=== PATIENT | female | born 1995 ===

== ENCOUNTER → 2021-06-09 10:44 | Outpatient (CLI) | payer OTHER, SELFPAY ==
[2021-06-09 11:17] LABS: COVID19 -Nasal RAPID Negative (Negative)
== END ==
PROVIDERS: Visit Provider Physician Assistant
DX: Z20.822 Contact with and (suspected) exposure to COVID-19 (principal)
CPT/HCPCS: 87635

== ENCOUNTER 2025-02-28 07:25 | Inpatient (IN) | payer BC, SELFPAY ==
--- NOTE | 2025-02-28 07:53 | P.HPOB_ITS ---
OB HPI Date/Time Date of admission: 02/28/25 Date Patient Seen: 02/28/25 Time Patient Seen: 07:30 History of Present Condition Chief complaint: INDUCTION : 1 Para: 0 Estimated Date of Delivery: 02/21/25 Estimated Gestational Age (weeks): 41.0 Narrative: Rosa Eric is a 29 year old female @ 41wks 0 days by LMP concordant with 13wks US who presents for medical IOL for late term. Had a Jones balloon placed in clinic yesterday which resulted in 4 hours of strong contractions. Everything stopped around 9pm and she was able to get some sleep. Some mucus and bloody show was noted. Has been tugging on the balloon, but it hasn't come out yet. +FM. No LOF. Uncomplicated care with CNMs. Planning unmedicated . , Mike, is present and supportive. Indications Indication for induction OB: post dates (41.0) History of Present care: good care, initiated at week # (13), number of visits (10) and pounds weight gain (12) Dating criteria: LMP confirmed by 1st trimester US Ultrasounds: normal mid trimester US Obstetrical complications: none Preadmission Labs Blood type: A (+) positive -: Antibody screen: negative, GBS status: negative, HBsAG: negative, HIV: negative and RPR/VDLR: negative -: Chlamydia screen: not detected and Gonorrhea screen: not detected -: Rubella: not immune and Varicella: immune HCT: 38.3 HCAB: negative Cell-free DNA: Negative x3 1 hr GTT: 137 Evaluation Evaluation Baseline heart rate: 125 Variability: Moderate (6-25) monitor accelerations: Present Monitor Decelerations: Absent Dilation (cm): 4 Effacement (%): 75 Dilation: 3-4 cm Effacement: 60-70% station: -3 Position of cervix: posterior Consistency: soft Benitez score: 6 Comments: Jones balloon removed from vagina prior to CE [facility] Social History (Updated 02/28/25 @ 08:05 by Zoraida Da Silva CNM) marital status: details: has a stepson household members: spouse and children lives independently: Yes caregiver/support person: No housing: house education level: high school occupational status: employed do you feel safe at home: Yes Meds Home Medications and Allergies Home Medications ?Medication ?Instructions ?Recorded ?Confirmed ?Type benzonatate 100 mg capsule 100 mg PO BID-TID PRN cough #14 06/09/21 06/09/21 Rx caps Allergies Allergy/AdvReac Type Severity Reaction Status Date / Time diphenhydramine (From Allergy Severe Hives Verified 06/09/21 10:42 Benadryl) Review of Systems Review of Systems ROS: Yes All systems reviewed with the patient and are negative except as otherwise documented OB Exam Vital signs Blood Pressure: 114/73 Pulse Rate: 105 Temperature: 95.5 F (temporal) Resp Effort & Inspection: normal respiratory effort and able to speak in complete sentences Auscultation: clear to auscultation bilaterally Cardio Rate: regular rate Rhythm: regular rhythm Heart Sounds: S1 normal and S2 normal Presentation: vertex Estimated Weight (lbs): 7 Objective Labs 02/28/25 08:20 Assessment and Plan Assessment and Plan Assessment and Plan narrative: A: Late term [place] Medical IOL- post dates Cervical ripening indicated No indication for antibiotics Cat I FHR P: Admit routine labor order. Start with misoprostol x2 doses, then reassess. Encouraged balanced rest and activity in the early stages. Time-Based Coding :: [TOTAL MINUTES] spent with patient and on the chart (including review of chart, obtaining history, exam, reviewing outside data, placing orders, documenting exam and treatment plan, and counseling patient) on [DATE].
[2025-02-28 08:06] VITALS: BP 114/73; PULSE 105; TEMP 35.3
[2025-02-28 09:07] LABS: Add Manual Diff / Slide Review NO; Hematocrit 41.7 % (36-46); Hemoglobin 14.2 g/dL (12.0-16.0); Lymphocytes Absolute Auto 1300 /uL (1100-4500); Mean Corpuscular HGB Conc 33.9 % (30-36); Mean Corpuscular Hemoglobin 30.4 PG (26-34); Mean Corpuscular Volume 89.5 fL (80-100); Platelet Count 268 X10^3/uL (150-400)
[2025-02-28 10:21] VITALS: BP 114/72
[2025-02-28] MEDS: LACTATED RINGERS 1,000 ML 100 ML IV (15:40)
[2025-02-28] MEDS: OXYTOCIN PREMIX 30 UNIT/500 ML PLAST..BAG IV (15:41)
--- NOTE | 2025-02-28 15:45 | PM.OBPNLAB ---
Date/Time Date Patient Seen: 02/28/25 Time Patient Seen: 15:30 Pain Control Pain control: tolerating well Comments: Sitting up on a ball, visiting with her mother, sister and . [place] mild contractions with first dose of misoprostol and was able to alternate rest and activity. Contractions became stronger with second dose of misoprostol, given around noon. Maris rating contractions at 7/10. No vaginal bleeding or leaking of fluid. Open to pitocin at this time. VS: BP 120/81, HR 102, T 35.4C Temporal Pelvic Exam Dilation (cm): 5 Effacement (%): 75 station: -2 Amniotic membrane status: Intact Contractions Monitor mode: External Contraction frequency (min): 3 (2-4) Contraction duration (min): 1 Contraction pattern: Regular Contraction intensity: Moderate Status status: Category l Heart Rate Baseline: 135 Monitor Accelerations: Present Monitor Decelerations: Absent Monitor Variability: Moderate Assessment and Plan Assessment: induction ongoing Plan: begin patient augmentation (begin pitocin slowly) Comments: Offered watching and waiting to see if stronger contraction persist vs beginning pitocin augmentation now. Rosa elected to start pitocin which was ordered. Encouraged hydrotherapy as next step if not coping well. Reassess in 4 hours or JOHN patterson.
[2025-02-28] MEDS: ONDANSETRON 4 MG/2 ML INJ IV (18:44)
[2025-02-28] MEDS: fentaNYL 100 MCG/2 ML INJ IV (18:56)
--- NOTE | 2025-02-28 20:25 | P.PCN_ITS ---
Regional Block Pre-procedure Procedure: Continuous Lumbar Epidural for L&D Attending OB provider: Zoraida Da Silva PMH/ROS narrative: at 41+ IOL. No medical or obstetric complications. No significant PMH. Reports anaphylaxis to diphenhydramine. ASA Class: II Labs: Hct 41.7 % (36-46) 02/28/25 08:20 Plt Count 268 X10^3/uL (150-400) 02/28/25 08:20 Medications: Current Medications Generic Name Dose Route Start Last Admin Trade Name Freq PRN Reason Stop Dose Admin Calcium Carbonate 1,000 mg 02/28/25 07:49 Calcium Carbonate 500 Mg Tab PO Q2HR PRN Dyspepsia Carboprost Tromethamine 250 mcg 02/28/25 07:49 Carboprost 250 Mcg/Ml Ampul IM Q90M PRN Bleeding Fentanyl 100 mcg 02/28/25 07:49 02/28/25 18:56 Fentanyl 100 Mcg/2 Ml Inj IV 100 mcg Q1H PRN Administration Pain, Severe (7-10) Oxytocin/Lactated Ringer's 30 unit in 500 mls @ 200 mls/hr 02/28/25 07:49 Oxytocin Premix IV CONT PRN Bleeding Protocol Tranexamic Acid 1,000 mg/ 100 mls @ 600 mls/hr 02/28/25 07:49 Sodium Chloride IV NOW PRN Bleeding Oxytocin/Lactated Ringer's 30 unit in 500 mls @ 2 mls/hr 02/28/25 08:00 02/28/25 15:41 Oxytocin Premix IV 2 milliunit/min TITRATE ALONZO 2 mls/hr Protocol Administration 2 MILLIUNIT/MIN Lidocaine HCl 20 ml 02/28/25 07:49 Lidocaine 1% 20 Ml INJ INTRA-OP PRN Post Delivery Methylergonovine Maleate 0.2 mg 02/28/25 07:49 Methylergonovine 0.2 Mg Tablet PO Q6HR PRN Heavy Bleeding Methylergonovine Maleate 0.2 mg 02/28/25 07:49 Methylergonovine 0.2 Mg/Ml Vial IM NOW PRN Bleeding Mineral Oil 30 ml 02/28/25 07:49 Mineral Oil 30 Ml Udc TOP PRN PRN Version Misoprostol 800 mcg 02/28/25 07:49 Misoprostol 200 Mcg Tablet MS NOW PRN Bleeding Misoprostol 400 mcg 02/28/25 07:49 Misoprostol 200 Mcg Tablet SL NOW PRN Bleeding Misoprostol 50 mcg 02/28/25 07:49 02/28/25 12:08 Misoprostol 25 Mcg Tablet SL 50 mcg Q4H PRN Administration cervical ripening Naloxone HCl 0.2 mg 02/28/25 07:49 Naloxone 0.4 Mg/Ml Vial IV Q2MIN PRN Opiate Reversal Ondansetron HCl 4 mg 02/28/25 07:49 02/28/25 18:44 Ondansetron 4 Mg/2 Ml Inj IV 4 mg Q4HR PRN Administration Nausea And Vomiting Oxytocin 10 unit 02/28/25 07:49 Oxytocin 10 Unit/Ml Vial IM NOW PRN Bleeding Allergies: Allergies Allergy/AdvReac Type Severity Reaction Status Date / Time diphenhydramine (From Allergy Severe Hives Verified 06/09/21 10:42 Benadryl) Procedure Insertion date: 02/28/25 Insertion time: 20:04 Prep/Local: betadine x3 and 1% lidocaine Interspace: L23 Patient position: sitting Needle: 18 gauge [facility] (CSE: 27g Pencan through Hustead, clear CSF, 1mL 0.25% bupiv MPF) Loss of resistance with: saline JUANITA at (cm): 5 Catheter placed at SKIN (cm): 10 Catheter in SPACE (cm): 5 Insertion: No CSF, No Blood and No Paresthesia with insertion Initial Medications TEST DOSE time: 20:06 TEST DOSE: 1.5% lidocaine with epinephrine 1:200k (mL): 3 BOLUS DOSE time: 20:14 BOLUS DOSE (mL): 4 BOLUS DOSE med: other (infusate) Infusion INFUSION: 0.125% bupivacaine and with fentanyl 2 mcg/mL Initial rate (mL/hr): 8 Subsequent interventions: To CS for failure to progress/active phase arrest. Post-procedure Anesthesia date START: 02/28/25 Anesthesia time START: 19:54 Anesthesia date END: 03/01/25 Anesthesia time END: 12:09 Post-procedure Anesthesia Assessment: Yes CV function: HR/BP stable, Yes Resp function: RR/sat/airway adequate, Yes Post-op hydration adequate, Yes Pain control adequate, Yes Nausea & vomiting absent, Yes Temperature > 36 C, Yes Mental status appropriate and No Anesthesia complications
--- NOTE | 2025-02-28 20:54 | PM.OBPNLAB ---
Date/Time Date Patient Seen: 02/28/25 Time Patient Seen: 20:30 Pain Control Pain control: epidural Comments: Labored well with low dose pitocin augmentation (max dose 6mu/min). Tried NO2 for a few hours before requesting a dose of Fentanyl, then an epidural. Now resting comfortably after epidural placement. VS: BP 120/61, HR 87bpm, T 36.4C Temporal Pelvic Exam Dilation (cm): 6 Effacement (%): 90 station: -2 Amniotic membrane status: Bulging Contractions Monitor mode: External Pitocin rate (mU/min): 6 Contraction frequency (min): 2 Contraction duration (min): 1 Contraction pattern: Regular Contraction intensity: Moderate Status status: Category ll Heart Rate Baseline: 140 Monitor Accelerations: Present Monitor Decelerations: Early and Late Monitor Variability: Moderate Assessment and Plan Assessment: active labor and induction ongoing Plan: continuous present management Comments: Decrease pitocin now and allow for resolution of late deceleration. If FHR improves, will continue pitocin titration. Encourage rest with frequent position changes. Reassess in 4 hours or GADIEL pattersonN.
--- NOTE | 2025-03-01 | PATH_ITS ---
[facility] Accession Number: [id number] No. of containers..01 Tissue . 01 Material submitted: . placenta - PLACENTA . 01 Diagnosis: PLACENTA: Intact tafoya placenta with features of maturation consistent with third trimester gestational age. Placental weight: 469 g (greater than 25th percentile for gestational age of 41 weeks). Para centrally inserted 3 vessel umbilical cord with amniotic web; No evidence of funisitis, true knots or thrombi. membranes with meconium staining macrophages and mild acute chorioamnionitis. Placenta cotyledon parenchyma with no significant diagnostic alterations. No evidence of acute villitis, infarcts or features of abruption. [facility] 03/17/2025 1535 Local . 01 Electronically signed: . Letty Middleton MD, Pathologist NPI- [id number] . 01 Gross description: . The specimen is received in formalin with two patient identifiers and placenta and consists of a 19.5 x 19.0 x 1.9 cm discoid-shaped tafoya placenta with a 469 gram trimmed weight. The membranes are slightly green tinged, focally thickened, and insert marginally. There is a 46 cm in length and up to 1.8 cm in diameter trivascular paracentrally inserted umbilical cord. The umbilical cord inserts 4.5 cm from the nearest placental edge. There is an amniotic web that extends up to 1.5 cm up the umbilical cord and as a result, the amnion is partially from the chorionic surface. The umbilical cord is wagner-white, slightly green tinged, and has 1.5 twists per 5 cm. In addition, there is a 3 cm in length and up to 2.5 cm in diameter segment of the umbilical cord which is markedly edematous but is otherwise unremarkable. The surface is wagner-green with vessels that radiate from the umbilical cord. The maternal surface is made up of complete and well-formed cotyledons, and sectioning through the placental disc shows a red-wagner, focally calcified, spongy, homogeneous cut surface without areas of abnormality. Construction Worker sections are submitted as follows: . A1: Proximal and distal cord. A2: Membrane rolls. A3: Focally edematous umbilical cord. A4: Full-thickness placental disc to include focal area of calcification. A5-A6: Additional full-thickness sections of placenta. ([id number]) /MRV 03/04/2025 Count includes the [facility] Local . 01 Pathologist provided ICD-10: P96.83, O62.9 . 01 CPT . 995494 Specimen Comment: A courtesy copy of this report has been sent to [facility] Pathology Performed at: [address] [id number] MD Santhosh Sadler MD Phone: [phone]
--- NOTE | 2025-03-01 00:55 | PM.OBPNLAB ---
Date/Time Date Patient Seen: 03/01/25 Time Patient Seen: 00:40 Pain Control Comments: Rosa has been changing positions and resting well with adequate epidural anesthesia. Family remains supportive at her side. Agreeable to AROM. VS: BP 137/75, HR 100bpm, T 36.0C Temporal Pelvic Exam Dilation (cm): 7 Effacement (%): 90 station: -2 Amniotic membrane status: Ruptured (AROM, meconium) Contractions Monitor mode: External Pitocin rate (mU/min): 3 Contraction frequency (min): 2 Contraction pattern: Regular Contraction intensity: Moderate Status status: Category ll Heart Rate Baseline: 130 Monitor Accelerations: Present Monitor Decelerations: Early and Late Monitor Variability: Moderate Assessment and Plan Assessment: active labor (w/ slow progression) and induction ongoing Plan: continuous present management Comments: AROM performed after informed consent obtained. Encouraged upright positioning for the next 20-30 minutes, as allowed by FHR. Continue pitocin titration to adequate contraction pattern. CNM remains in house for cat II FHR. Will consult OB as appropriate, though FHR remains reassuring to continue labor at this time.
[2025-03-01] MEDS: FENT 2MCG/ML BUPIV 0.125% EPI 200 MCG/100 ML PLAST..BAG 8 MCG EPIDURAL ×2 (01:21→10:25)
--- NOTE | 2025-03-01 05:19 | PM.OBPNLAB ---
Date/Time Date Patient Seen: 03/01/25 Time Patient Seen: 05:00 Pain Control Comments: Rosa remains comfortable with her epidural and maintaining good movement, has even been able to be on hands and knees with a CUB. VS: Pelvic Exam Dilation (cm): 7 Effacement (%): 90 station: -2 Amniotic membrane status: Leaking (copious thin meconium) Comments: Caput deflexed, LOT Contractions Monitor mode: External Pitocin rate (mU/min): 3 Contraction frequency (min): 4 Contraction pattern: Regular Contraction intensity: Moderate Status status: Category ll Heart Rate Baseline: 140 Monitor Accelerations: Present Monitor Decelerations: Early, Late (rare) and Variable Monitor Variability: Moderate Assessment and Plan Assessment: active labor and induction ongoing Comments: Discussed slow labor progression with malpresented fetus and introduced possibility of need for . Recommend IUPC which Rosa consented to. IUPC placed, initial MVUs are 80. Will continue pitocin titration to adequate contraction. Will consider manual rotation of fetus. Reassess in 4 hours or repeat CE after 2 hours of adequate contractions.
[2025-03-01] MEDS: LACTATED RINGERS 1,000 ML 100 ML IV (10:26)
[2025-03-01] MEDS: ONDANSETRON 4 MG/2 ML INJ IV ×2 (10:26→17:12)
[2025-03-01] MEDS: LACTATED RINGERS 1,000 ML 999 ML IV (10:37)
--- NOTE | 2025-03-01 11:08 | PM.OBPNLAB ---
Date/Time Date Patient Seen: 03/01/25 Time Patient Seen: 11:08 Pain Control Pain control: epidural Comments: Rosa has tried everything, including CNM attempting a manual rotation, RNs performing Welcher's and an amnioinfusion. Pitocin reached a max dose of 13mu/min. Rosa is feeling ready for a if no change at this exam. VS: BP 124/79, HR 127bpm, T 36.8C Temporal, SpO2 100% on RA. Pelvic Exam Dilation (cm): 7 Effacement (%): 90 station: -2 Amniotic membrane status: Leaking (copious thin meconium) Contractions Monitor mode: External Pitocin rate (mU/min): 13 Contraction frequency (min): 3 Contraction duration (min): 2 Contraction pattern: Regular Contraction intensity: Moderate Intrauterine tone measurement: 160 (max MVUs reached ) Status status: Category ll Heart Rate Baseline: 155 Monitor Accelerations: Present Monitor Decelerations: Early, Late and Variable Monitor Variability: Moderate Assessment and Plan Plan: Comments: Given no cervical change for 10 hours with persistent malpresentation proceeding with a is indicated and Rosa is requesting this. Stop the pitocin, IUPC out. Consulted [facility]/ and for primary for active phase arrest. Notified [facility]/ for Cat II FHR and meconium stained amniotic fluid.
[2025-03-01] MEDS: CITRIC ACID/SODIUM CITRATE 15 ML SOLUTION 30 ML PO (11:47)
--- NOTE | 2025-03-01 12:15 | P.OP.PRE_ITS ---
Pre-operative Note COVID-19 COVID-19 status: Not tested Interval Note History & Physical reviewed/Exam performed by Physician: Yes Changes to H&P: No H&P completed within 30 days and has changed as indicated here:: Entered on beh waylon of Dr. Gil Bowden due to his EHR login issues.
[2025-03-01] MEDS: AZITHROMYCIN 500 MG in DEXTROSE 5% IN WATER 250 ML 250 MG IV (12:30)
[2025-03-01] MEDS: ACETAMINOPHEN IV 1,000 MG/100 ML VIAL 400 MG IV (12:45)
--- NOTE | 2025-03-01 12:54 | SUR.OPER ---
Supine on Padded OR bed, head on pillow, safety belt at thigh, arms secured on padded arm boards at <90 degrees abduction. Bump under right buttock. Legs uncrossed with pillow under knees, gel pad to heels, tape over blanket to lower legs.
--- NOTE | 2025-03-01 13:07 | SUR.OPER ---
Viable baby boy born at 1239 on [birth year]25.
[2025-03-01 13:32] VITALS: BP 124/56; PULSE 108; RESP 21; TEMP 37.2; O2SAT 98
[2025-03-01 13:35] VITALS: BP 103/54; PULSE 107; RESP 20; O2SAT 97
--- NOTE | 2025-03-01 13:44 | P.OP_ITS ---
Operative Date/Time/Diagnoses Date of procedure: 03/01/25 Time of procedure: 11:30 Pre-op diagnosis: Arrest of descent at 7 cm in the 1st stage of labor Post-op diagnosis: same Procedure & Clinicians Procedure: Primary low-transverse section Same procedure(s) as scheduled: Yes Indications: Arrest of active phase labor in the 1st stage at 7 cm Surgeon: Gil Bowden Ramp Supervisor: Lane Pardo Reason for Ramp Supervisor: To facilitate timely and safe procedure Anesthesia Type: Epidural Operative Notes Findings: Normal gravid anatomy with normal-appearing tubes and ovaries and uterus in female Closure Type: primary Specimen(s): cord blood Applied: Catheter Estimated Blood Loss (mL): 643 Blood products transfused: none Procedure in detail: The patient was identified by name and medical record number taken to the operating room prepped and draped in the supine position with left uterine displacement a Pfannenstiel skin incision was made with a scalpel taken down thr ough subcutaneous tissue and fascia rectus muscles were split in the midline peritoneum was opened digitally bluntly a low transverse uterine incision was made with a scalpel extended laterally and cephalad bluntly the amniotic fluid was noted to have meconium staining baby was in the vertex presentation the head was elevated to the incision and delivered with the assist of a vacuum. Following which the patient was cleaned and dried and given to the pediatric caregivers. The uterus was closed with 2 layers of 0 Monocryl suture incision appeared intact hemostasis was good tubes and ovaries appeared normal irrigation was carried out with warm saline parietal peritoneum was closed with a running 2 0 Vicryl fascia was closed with 0 Monocryl in a running fashion subcutaneous tissue was irrigated and closed with a running 2 0 Vicryl skin was approximated with running subcuticular 3-0 Vicryl on a Keshawn needle sponge needle and instrument counts were correct dressing was placed on the incision Complications: none Post-operative Condition: stable Disposition: PACU Aftercare: routine postop
[2025-03-01] MEDS: LANOLIN OINT 7 GM 1 APPLIC TOP (14:49)
[2025-03-01] MEDS: HYDROmorphone 2 MG/ML SYRINGE IV (14:49)
[2025-03-01] MEDS: ACETAMINOPHEN 325 MG TABLET 650 MG PO (18:39)
[2025-03-01] MEDS: KETOROLAC 30 MG/ML VIAL IV (18:40)
[2025-03-02] MEDS: ACETAMINOPHEN 325 MG TABLET 650 MG PO ×4 (00:54→20:37)
[2025-03-02] MEDS: KETOROLAC 30 MG/ML VIAL IV ×2 (00:55→07:53)
[2025-03-02 05:39] LABS: Add Manual Diff / Slide Review NO; Hematocrit 37.0 % (36-46); Hemoglobin 12.7 g/dL (12.0-16.0); Lymphocytes Absolute Auto 1300 /uL (1100-4500); Mean Corpuscular HGB Conc 34.2 % (30-36); Mean Corpuscular Hemoglobin 30.2 PG (26-34); Mean Corpuscular Volume 88.4 fL (80-100); Platelet Count 220 X10^3/uL (150-400)
--- NOTE | 2025-03-02 12:10 | P.PNOB_ITS ---
Subjective - OB Subjective Patient comments: pain well controlled (hasn't required oxycodone) and tolerating diet Narrative: Doing well on POD #1 Date Patient Seen: 04/01/25 Time Patient Seen: 11:30 Exam Vital Signs (past 8 hours): Oxygen Delivery Method Room Air Narrative Exam Narrative: Alert and O x 3. Ambulating well, Const General: cooperative Nutritional Appearance: well nourished Orientation: alert, awake and oriented x3 HENMT Head: normal to inspection Ears: other (NE) Resp Effort & Inspection: normal respiratory effort and able to speak in complete sentences Cardio Rate: regular rate Rhythm: regular rhythm GI Inspection: distended (Mild bloating, BS +, denies flatus) Auscultation: normal bowel sounds Bimanual Exam- Vagina & Uterus: other (Fundus 2 FB below U) Skin General: no rashes or lesions noted Neuro Cognition: normal cognition Speech: speech normal Extrem General: normal to inspection and no calf tenderness Psych Appearance: grossly normal Mental Status: mental status grossly normal Speech and Movement: speech and movement normal Objective Labs 03/02/25 05:27 Labs: Laboratory Results - last 24 hr 03/02/25 05:27 WBC 10.7 RBC 4.19 Hgb 12.7 Hct 37.0 MCV 88.4 MCH 30.2 MCHC 34.2 RDW 13.9 Plt Count 220 Neut % (Auto) 77.2 H Lymph % (Auto) 11.8 L Prentiss % (Auto) 9.1 Eos % (Auto) 1.3 L Baso % (Auto) 0.6 Neut # (Auto) 8300 H Lymph # (Auto) 1300 Prentiss # (Auto) 1000 H Eos # (Auto) 100 Baso # (Auto) 100 Assessment & Plan Plan day: 1 plan OB: routine postop care Comments: Appears to be progressing well. Discussed Rubella non-immune. Patient declines MMR vaccine Time-Based Coding :: [TOTAL MINUTES] spent with patient and on the chart (including review of chart, obtaining history, exam, reviewing outside data, placing orders, documenting exam and treatment plan, and counseling patient) on [DATE].
[2025-03-02] MEDS: IBUPROFEN 600 MG TABLET PO ×2 (14:20→20:38)
[2025-03-03] MEDS: IBUPROFEN 600 MG TABLET PO ×2 (03:24→09:25)
[2025-03-03] MEDS: ACETAMINOPHEN 325 MG TABLET 650 MG PO ×2 (03:24→09:24)
--- NOTE | 2025-03-03 06:48 | PM.OBDS.1 ---
Discharge Providers Provider Date of admission: 02/28/25 07:25 Discharge Date: 03/03/25 Primary care physician: Doctor Edward MD Consults: 03/01/25 14:17 Consult to Manager Country Routine Comment: Discharge provider: Zoraida Da Silva CNM Summary Hospital Course Date Patient Seen: 03/03/25 Time Patient Seen: 06:49 Hospital Course: 41wk IOL resulted in long labor with active phase arrest at 7cm and primary for a healthy baby boy. PPD2: Stable s/p primary . Voiding and ambulating independently. Tolerating a general diet. Pain is well controlled with PO medication and rare oxycodone use. Vaginal bleeding is light, without clots. Small drainage on her dressing, not increased since shortly after the . Initially well, then began refusing despite many attempts and RN assistance. Rosa has switched to formula feeding. She is feeling ready for discharge to [place] today. Peripartum Data Infant Delivery Method: Section Laceration Description: None Episiotomy description: None Procedures: primary complications: none [employer] 1: Gender: Male Disposition of : home Discharge Diagnosis (1) Status post primary low transverse section: Status: Acute Status at Discharge Cognitive/behavioral status at discharge: oriented and calm Functional status at discharge: independent ambulation Overall status at discharge: patient is progressing back to baseline Time Spent with Patient Time attestation: Total time spent providing and/or coordinating discharge services: Time spent: Less than 30 minutes Objective Labs 03/02/25 05:27 Exam Vital Signs (past 8 hours): Oxygen Delivery Method Room Air BP 114/66, HR 90bpm, RR 18, T 97.6F Temporal, SpO2 97% on RA Resp Effort & Inspection: normal respiratory effort and able to speak in complete sentences Cardio Rate: regular rate Rhythm: regular rhythm Other: LTAI with Aquacel dressing intact, no new drainage noted, no erythema. Fundus firm @ U-1, lochia light. Psych Appearance: grossly normal and well kempt Affect: normal affect Discharge Plan Discharge Plan Patient Disposition: Home Discharge orders & Medications Prescriptions: New oxycodone 5 mg Tablet 5 mg PO Q4H PRN (Reason: Pain, Moderate (4-6)) 5 Days Qty: 10 0RF acetaminophen 325 mg Tablet 650 mg PO Q6H 14 Days Qty: 112 0RF ibuprofen 600 mg Tablet 600 mg PO Q6H 14 Days Qty: 56 0RF docusate calcium 240 mg capsule 240 mg PO DAILY 5 Days Qty: 10 0RF Discontinued benzonatate 100 mg capsule 100 mg PO BID-TID PRN (Reason: cough) Qty: 14 0RF Follow up/Referrals: Zoraida Da Silva CNM [[employer] [id number], MANAGER FOOD] Referral Note: 1 week incision check: 03/07/25@1115am 2 week appointment: 03/14/25@1030am 6 week appointment: 04/11/2025@1030am Doctor Edward, [Primary Care Provider, Medical] Diet/Activity/Treatments Diet: Diet as Tolerated and Regular Activity: bed rest x 2 weeks, no heavy lifting x 4 weeks, pelvic rest x 6 weeks Skin/Wound/Dressing Care Report to your healthcare provider any signs of infection, such as:: chills, fever, increased pain, unusual drainage and unusual redness Visit Report/Discharge Packet Stand Alone Forms: Patient Portal/API, Stroke Signs & Symptoms Discharge Data Primary Care Provider: Doctor Edward Attending Provider: Zoraida Da Silva Admit Date/Time: 02/28/25 07:25
[2025-03-03 09:25] VITALS: BP 117/70; PULSE 84; RESP 20; TEMP 36.3
[2025-03-03] MEDS: PRENATAL VIT,CALC/IRON/FOLIC 1 TABLET 1 TAB PO (09:26)
== END 2025-03-03 11:10 | disposition home or self-care (01) | DRG 788 ==
PROVIDERS: Specialist; Admitting Provider Nurse Practitioner Obstetrics & Gynecology; Referring Provider Nurse Practitioner Obstetrics & Gynecology; Visit Provider Nurse Practitioner Obstetrics & Gynecology
PROC: 10D00Z1 Extraction of Products of Conception, Low, Open Approach (ICD-10-PCS; CPT 59514; principal; 2025-03-01 12:30)
DX: O62.1 Secondary uterine inertia (principal); O48.0 Post-term pregnancy; Z3A.41 41 weeks gestation of pregnancy; Z37.0 Single live birth; O76 Abnormality in fetal heart rate and rhythm complicating labor and delivery; Z67.10 Type A blood, Rh positive
CPT/HCPCS: 36415; 59050; 59200; 59514; 85025; 86850; 86900; 86901; G0379; J0131; J0689; J1171; J1885; J2274; J2405; J2590; J2704; J3010; J7060; J7120